=== PATIENT | female | born 1965 | race Caucasian/White ===

== ENCOUNTER 2019-04-18 21:35 | Emergency (ER) | payer SELFPAY ==
[~2019-04-18] VITALS: Ht 177.8 cm; Wt 78.0 kg
[2019-04-18 21:48] VITALS: Ht 177.8 cm; Wt 78.0 kg
[2019-04-18 22:31] LABS: PLATELET COUNT 214 x10^3mcL (130-400)
[2019-04-18 22:45] LABS: CALCIUM 7.9 mg/dL (8.5-10.1); CARBON DIOXIDE 25.8 mmol/L (21-32); CHLORIDE SERUM 106 mmol/L (98-107); GFR1 > 60 mL/min; GLUCOSE SERUM 121 mg/dL (74-106); POTASSIUM SERUM 3.9 mmol/L (3.5-5.1); SODIUM SERUM 141 mmol/L (136-145)
[2019-04-18 22:50] LABS: ALKALINE PHOSPHATASE 65 U/L (46-116); ALT/SGPT 26 U/L (14-59); AST/SGOT 32 U/L (15-37); BILIRUBIN TOTAL 0.2 mg/dL (0.20-1.00); LIPASE 164 IU/L (73-393); TOTAL PROTEIN, SERUM 7.2 g/dL (6.4-8.2)
[2019-04-18 23:06] LABS: RED CELL DISTRIBUTION WIDTH 18.5 % (11.5-14.5)
[2019-04-18 23:10] LABS: BAND NEUTROPHIL 2 % (0-10); MONOCYTE 5 % (0-7); SEGMENTED NEUTROPHILS 68 % (37-75)
[2019-04-18 23:12] LABS: rbc morphology (normal/abnorm) ABNORMAL (NORMAL)
[2019-04-18 23:13] LABS: PLATELET MORPHOLOGY PLATELETS NORMAL; target cell (codocyte) 1+
[2019-04-19 03:49] VITALS: BP 114/68
== END 2019-04-19 03:49 | disposition home or self-care (01) ==
LOC: ED 21:35
DX: K59.00 Constipation, unspecified (principal); Z98.84 Bariatric surgery status; Z88.5 Allergy status to narcotic agent
CPT/HCPCS: J1885; J2270; J2405; J3490; J7030